=== PATIENT | female | born 1990 | race Asian ===

== ENCOUNTER 2019-12-05 15:56 | Emergency (ER) | payer BC, OTHER ==
[2019-12-05] MEDS ORDERED: OXYCODONE-ACETAMINOPHEN 5-325 MG TABLET PO ONE (16:38)
[2019-12-05] MEDS ORDERED: DIPH/PERTUSS(ACELL)/TETANUS VAC/PF 0.5 ML SYR (>=10YO) IM ONE (16:39)
--- NOTE | 2019-12-05 17:02 | ER Document Report ---
ED General - General Chief Complaint: Hand Burn Stated Complaint: HOT OIL BURN/RIGHT HAND,FINGERS Time Seen by Provider: 12/05/19 16:29 Notes: 29-year-old female presents emergency department for a burn to the right hand. Patient states that she was deep frying something at work, went to put the pot away and the pot spilled hot oil onto her right hand. Patient is left-handed. Does not recall when her last tetanus shot was. Patient complains of significant pain to her right thumb and forefinger, denies pain to anywhere else on her hand, denies any splatter from the whitley. Complains of some stiffness when trying to bend her thumb and forefinger. - Related Data Allergies/Adverse Reactions: sulfamethoxazole [From Bactrim] Allergy (Verified 12/05/19 16:29) trimethoprim [From Bactrim] Allergy (Verified 12/05/19 16:29) Past Medical History - General Information source: Patient - Social History Smoking Status: Current Every Day Smoker - vapes Frequency of alcohol use: None Drug Abuse: None Family History: None Review of Systems - Review of Systems Constitutional: No symptoms reported Musculoskeletal: See HPI Skin: See HPI Neurological/Psychological: No symptoms reported -: Yes All other systems reviewed and negative Physical Exam - Vital signs Vitals: Temp Pulse Resp BP Pulse Ox 98.0 F 76 20 128/107 H 96 12/05/19 16:05 12/05/19 16:05 12/05/19 16:05 12/05/19 16:05 12/05/19 16:05 Interpretation: Normal - Notes Notes: GENERAL: Alert, interacts well. No acute distress. HEAD: Normocephalic, atraumatic EYES: Pupils equal, round and reactive to light, extraocular movements intact. ENT: Oral mucosa moist, tongue midline. NECK: Full range of motion, supple, trachea midline. LUNGS: no respiratory distress. EXTREMITIES: Moves all 4 extremities spontaneously, radial pulses 2/4 bilaterally. No cyanosis. NEUROLOGICAL: Alert and oriented x3, normal speech. PSYCH: Normal mood, normal affect. SKIN: Second-degree whitley to the thumb and forefinger on the right hand, noncircumferential, hand is very cold at this time but she had it in a bag full of ice water immediately prior to my exam. Whitley are not intact, she is able to approximate her thumb and her forefinger as well as her thumb and her fifth digit. Sensation is intact. Patient is able to fully flex and extend the thumb and the forefinger. Course - Re-evaluation Re-evalutation: 12/05/19 17:26 Based off criteria from the [place] [employer] patient should be transferred to a burn center. Discussed patient with Dr. Levin the surgeon on- call for trauma at [facility]. She does feel that they are able to care for this burn there. She is not certain that the patient truly needs to be transferred. Dr. Levin states that whitley to the hand are not necessarily a criteria for transfer. Also states that it is not her decision whether or not the patient is accepted for transfer and recommends that I discuss with the ER physician. Discussed with Dr. Shay [facility] who accepted on behalf of Dr. Adore Walter as his shift is ending and hers is still ongoing. They will accept this patient as a trauma transfer to their emergency department for further evaluation. The surgeons at [facility] do routinely care for whitley that are less than 25%. 12/05/19 17:28 Tetanus was updated, patient was given Percocet for pain control. - Vital Signs Vital signs: Temp Pulse Resp BP Pulse Ox 98.0 F 76 20 128/107 H 96 12/05/19 16:30 12/05/19 16:05 12/05/19 16:05 12/05/19 16:05 12/05/19 16:05 Discharge - Discharge Clinical Impression: Burn of right hand including fingers Qualifiers: Encounter type: initial encounter Burn degree: partial thickness (2nd degree) Qualified Code(s): T23.201A - Burn of second degree of right hand, unspecified site, initial encounter; T23.231A - Burn of second degree of multiple right fingers (nail), not including thumb, initial encounter Condition: Stable Disposition: [facility]
[2019-12-05 18:43] VITALS: BP 127/99
--- NOTE | 2019-12-26 13:20 | ER Document Report ---
Doctor's Note Notes: 12/26/19 13:19 Diagnosis for this patient should be second-degree burn of right thumb and right second digit. Diagnoses have been changed to reflect such.
== END 2019-12-05 18:43 ==
LOC: ER 15:56
DX: T23.241A Burn of second degree of multiple right fingers (nail), including thumb, initial encounter (principal); X10.2XXA Contact with fats and cooking oils, initial encounter; Y93.G3 Activity, cooking and baking; Y99.0 Civilian activity done for income or pay; F17.290 Nicotine dependence, other tobacco product, uncomplicated; Z23 Encounter for immunization; Z88.1 Allergy status to other antibiotic agents
CPT/HCPCS: 90471; 90715; 99285